=== PATIENT | male | born 1960 | race Caucasian/White ===

== ENCOUNTER → 2019-10-18 | Outpatient (CLI) | payer OTHER ==
[~2019-10-18] MED LIST: IOPAMIDOL 370 MG/ML 200 ML INFUS..BTL INJ ONE; SODIUM CHLORIDE 0.9% 100 ML ONE
[2019-10-18 18:14] LABS: BLOOD UREA NITROGEN 12 mg/dL (7-26); BUN/CREATININE RATIO 10 (6-25); CREATININE, SERUM 1.18 mg/dL (0.72-1.25); EST GLOMERULAR FILTRATION RATE > 60 ML/MIN (60-)
--- NOTE | 2019-10-19 09:05 | Diagnostic Imaging Report ---
CT,CTA Abdomen and pelvis, with runoff. History: Peripheral vascular disease. Comparison: Leg pain. Technique: Multidetector scanning of the abdomen and pelvis and bilateral lower extremities was performed from the level of the lung bases to the feet, after intravenous administration of contrast. Coronal and sagittal multiplanar, MIP, and 3-D volume-rendering reformations were obtained. RADIATION DOSE: Total DLP: 1120 mGy*cm Dose modulation, iterative reconstruction, and/or weight based adjustment of the mA/kV was utilized to reduce the radiation dose to as low as reasonably achievable. Discussion: LUNG BASES: No visualized abnormalities. ABDOMEN: 1.3 cm benign exophytic cyst is noted arising from the lower pole of the right kidney.. The liver, biliary tree, spleen, pancreas, adrenal glands, and left kidney are normal. Evaluation of bowel is limited without oral contrast. There is no bowel dilatation. The appendix is visualized and is normal. Diverticula are scattered throughout the colon without evidence of adjacent inflammation. There is no evidence of adenopathy or free fluid. PELVIS: The bladder, prostate, and seminal vesicles are normal in appearance. There is no evidence of free fluid or adenopathy. BONES AND SOFT TISSUES: Degenerative changes are present throughout the lumbar spine without evidence of lytic or sclerotic lesion. Vessels - Abdominal aorta: There is atherosclerotic calcification and plaque, with mild aneurysmal dilatation of the infrarenal abdominal aorta measuring up to 2.6 cm. SMA, celiac trunk, single bilateral renal arteries, and SAE are patent. Pelvis vessels: Moderate atherosclerotic disease is present within the right common iliac artery with 50% stenosis. Left common iliac artery is patent. Bilateral external and internal iliac arteries are patent. Right lower extremity: Right common femoral, profundus femoral, superficial femoral, and popliteal arteries are patent. Right knee prosthesis partially obscures the mid popliteal artery. Trifurcation vessels are patent to the feet. Left lower extremity: Left common femoral, profundus femoral, and proximal superficial femoral arteries are patent, but there is occlusion of the distal SFA. A femoropopliteal graft is present which is completely thrombosed throughout its course. There is reconstitution of the distal popliteal via collaterals. Tibioperoneal trunk and trifurcation vessels are visible to the feet. IMPRESSION: 1. Infrarenal abdominal aortic aneurysm measuring up to 2.6 cm. Follow-up is recommended every 5 years. 2. Moderate right common iliac artery stenosis. Remaining right-sided vasculature is patent. 3. 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 There is reconstitution of the popliteal and trifurcation vessels via collaterals. Signed by: Leo Quinn on 10/19/2019 9:03 AM
== END ==
LOC: CT 17:22
PROVIDERS: ATTEND Family Medicine
DX: I71.4 Abdominal aortic aneurysm, without rupture (principal); I73.9 Peripheral vascular disease, unspecified
CPT/HCPCS: 36415; 75635; 82565; 84520; J7050; Q9967

== ENCOUNTER → 2022-02-09 | Outpatient (CLI) | payer BC | LOC: MRI 14:10 | PROVIDERS: ATTEND Family Medicine | DX: M54.50 Low back pain, unspecified (principal); M51.36 Other intervertebral disc degeneration, lumbar region; G57.92 Unspecified mononeuropathy of left lower limb | CPT/HCPCS: 72148 ==